=== PATIENT | female | born 1945 | race Caucasian/White ===

== ENCOUNTER 2017-08-21 11:53 | Inpatient (IN) | payer MEDICARE, BC ==
[2017-08-16 16:07] LABS: BASOPHILS % (AUTO) 0.4 % (0-1); EOSINOPHILS # (AUTO) 0.1 X10'3 (0-0.9); EOSINOPHILS % (AUTO) 1.3 % (0-6); LYMPHOCYTES # (AUTO) 1.5 X10'3 (1.1-4.8); LYMPHOCYTES % (AUTO) 25.3 % (21-51); MEAN CORPUSCULAR HEMOGLOBIN 32.4 PG (27.0-31.0); MEAN CORPUSCULAR HGB CONC 33.9 % (33.0-36.5); MEAN CORPUSCULAR VOLUME 95.6 FL (78-98); MEAN PLATELET VOLUME 8.5 FL (7.4-10.4); MONOCYTES # (AUTO) 0.6 X10'3 (0-0.9); MONOCYTES % (AUTO) 9.4 % (2-12); NEUTROPHILS # (AUTO) 3.8 X10'3 (1.8-7.7); NEUTROPHILS % (AUTO) 63.6 % (42-75); PRE OP HEMATOCRIT 44.1 % (35.0-45.0); PRE OP HEMOGLOBIN 14.9 g/dL (12.0-16.0); PRE OP PLATELET COUNT 229 X10'3 (140-440); RED BLOOD COUNT 4.61 X10'6 (4.20-5.60)
[2017-08-16 16:13] LABS: CLARITY,URINE Clear (Clear); COLOR,URINE Yellow (Yellow); GLUCOSE, URINE Negative (Neg); KETONES,URINE Negative (Neg); LEUKOCYTE ESTERASE ,URINE Moderate (Neg); NITRITES, URINE Negative (Neg); OCCULT BLOOD,URINE Negative (Neg); PROTEIN,URINE Negative (Neg); UROBILINOGEN,URINE 0.2 E.U/dL (0.2-1.0)
[2017-08-16 16:31] LABS: ALBUMIN 4.1 G/DL (3.4-5.0); ALKALINE PHOSPHATASE 53 IU/L (46-116); BLOOD UREA NITROGEN 11 MG/DL (7-18); BUN/CREATININE RATIO 15.7 (6.6-38.0); CALCIUM 9.2 MG/DL (8.5-10.1); CHLORIDE 102 MMOL/L (99-107); PRE OP ALT 51 U/L (30-65); PRE OP ANION GAP 9 (8-16); PRE OP AST 35 U/L (10-37); PRE OP BILIRUB, TOTAL 0.8 MG/DL (0.0-1.0); PRE OP GLUCOSE 104 MG/DL (70-104); PRE OP POTASSIUM 3.9 MMOL/L (3.4-5.1); PRE OP SODIUM 139 MMOL/L (135-145); TOTAL CARBON DIOXIDE 28.2 MMOL/L (24-32); TOTAL PROTEIN 8.1 G/DL (6.4-8.2); eGFR 82 ML/MIN
[2017-08-16 16:38] LABS: UA COLLECTION TYPE NON-SPECIFIED
[2017-08-16 16:47] LABS: WBC,URINE 20-30 /HPF (0-4)
[2017-08-16 16:48] LABS: BACTERIA,URINE 1+ /HPF (Neg); RBC,URINE NONE SEEN /HPF (0-2); SQUAMOUS EPITHELIAL CELL,UR FEW /LPF (FEW); WBC CLUMPS,URINE FEW /HPF (NEGATIVE)
[2017-08-21] VITALS (19 sets, daily range): BP systolic 82–125; BP diastolic 45–92
[~2017-08-21] VITALS: Ht 167.6 cm; Wt 83.0 kg
[~2017-08-21 11:53] MED LIST: CHOL200016 PO; ROSU5TAB PO; acetaminophen 325mg tablet PO ONE; ceFAZolin 2gm in dextrose, iso 100 ML IV ONE; famotidine 20mg tablet PO ONE; gabapentin 300mg capsule PO ONE; metoclopramide 5 mg/ml inj IV ONE; oxyCODONE SR 10mg (sust. release) tab PO ONE; ringers solution, lacted 1,000 ML IV SCH; tranexamic acid inj. 1,000 MG in normal saline 100ml IV soln 90 ML IV ONE; vancomycin inj 1,500 MG in normal saline 300ml IV soln IV ONE
[2017-08-21] MEDS ORDERED: LIDOcaine 1% (10mg/ml) 2ml vial ONE (12:30)
[2017-08-21] MEDS ORDERED: SULF1TAB49 PO (13:17)
[2017-08-21] MEDS ORDERED: ceFAZolin 1000mg inj ONE (13:33)
[2017-08-21] MEDS ORDERED: BUPIVAcaine/dex-water/PF 7.5 mg/ml 2ml ampul ONE (13:45)
[2017-08-21] MEDS ORDERED: MIDAZolam 1mg/ml 10ml vial ONE (13:48)
[2017-08-21] MEDS ORDERED: MORPHINE SULFATE/PF 0.5 MG/ML 10ML AMPUL ONE (13:49)
[2017-08-21] MEDS ORDERED: vancomycin 1,000mg inj ONE (13:51)
[2017-08-21] MEDS ORDERED: propofol inj 20 ML IV ONE ×2 (14:15)
[2017-08-21] MEDS ORDERED: naloxone 2mg/2ml inj 1.6 MG in normal saline 500ml IV soln 500 ML IV PRN (15:16)
[2017-08-21] MEDS ORDERED: ringers solution, lacted 1,000 ML IV SCH (15:16)
[2017-08-21] MEDS ORDERED: meperidine/PF 25mg/ml syringe IV ONE (15:20)
[2017-08-21] MEDS ORDERED: morphine 2 MG/ML inj. syringe IV PRN ×2 (15:20)
[2017-08-21] MEDS ORDERED: proCHLORperazine 10 MG/2 ml inj IV PRN (15:20)
[2017-08-21] MEDS ORDERED: diphenhydrAMINE 50 mg/ml inj IV PRN (15:20)
[2017-08-21] MEDS ORDERED: ondansetron/PF 4mg/2ml inj IV PRN ×2 (15:20)
[2017-08-21] MEDS ORDERED: meperidine/PF 25mg/ml syringe IV PRN ×2 (15:20)
[2017-08-21] MEDS ORDERED: oxyCODONE IR 5mg (immed. release) tablet PO PRN (15:50)
[2017-08-21] MEDS ORDERED: diphenhydrAMINE 25mg capsule PO PRN ×2 (15:50)
[2017-08-21] MEDS ORDERED: acetaminophen 325mg tablet PO PRN (15:50)
[2017-08-21] MEDS ORDERED: magnesium hydroxide 30ml (MOM) UD suspension PO PRN (15:50)
[2017-08-21] MEDS ORDERED: bisacodyl 10mg suppository rectal RC PRN (15:50)
[2017-08-21] MEDS ORDERED: cloNIDine hcl/PF 100mcg/ml inj ONE (16:05)
[2017-08-21] MEDS ORDERED: 0.9 % SODIUM CHLORIDE 10 ML VIAL ONE (16:11)
[2017-08-21] MEDS ORDERED: BUPIVAcaine/PF 2.5 mg/ml (0.25%) 30ml vial ONE (16:11)
[2017-08-21] MEDS ORDERED: dexamethasone sod phosphate 4mg/ml inj. ONE (16:11)
[2017-08-21] MEDS ORDERED: tranexamic acid inj. 800 MG in normal saline 100ml IV soln 100 ML IV ONE (18:00)
[2017-08-21] MEDS: potassium cl 20mEq in 1/2 NS 1,000 ML IV SCH ×2 (19:15→23:48)
[2017-08-21] MEDS: ondansetron/PF 4mg/2ml inj IV PRN ×2 (19:45→23:24)
[2017-08-21] MEDS ORDERED: vancomycin/NS 1 GM ADD-VANTAGE 250 ML IV SCH (20:00)
[2017-08-21] MEDS: cefazolin 1gm/NS 100mL 100 ML IV SCH (20:02)
[2017-08-21] MEDS: acetaminophen 325mg tablet PO SCH (20:03)
[2017-08-21] MEDS: gabapentin 300mg capsule PO SCH (20:03)
[2017-08-21] MEDS: sennosides 8.6mg tablet PO SCH (20:03)
[2017-08-21] MEDS: celeCOXIB 100mg capsule PO SCH (20:04)
[2017-08-22] VITALS (8 sets, daily range): BP systolic 98–124; BP diastolic 51–70
[2017-08-22] MEDS: cefazolin 1gm/NS 100mL 100 ML IV SCH
[2017-08-22] MEDS: acetaminophen 325mg tablet PO SCH ×4 (02:00→20:32)
[2017-08-22] MEDS ORDERED: cefazolin 1gm/NS 100mL 100 ML IV ONE (04:00)
[2017-08-22] MEDS: potassium cl 20mEq in 1/2 NS 1,000 ML IV SCH ×3 (06:12→23:47)
[2017-08-22 06:32] LABS: BASOPHILS % (AUTO) 0.1 % (0-1); EOSINOPHILS # (AUTO) 0.1 X10'3 (0-0.9); EOSINOPHILS % (AUTO) 0.8 % (0-6); HEMATOCRIT 34.7 % (35.0-45.0); HEMOGLOBIN 12.1 g/dl (12.0-16.0); LYMPHOCYTES # (AUTO) 0.6 X10'3 (1.1-4.8); LYMPHOCYTES % (AUTO) 6.6 % (21-51); MEAN CORPUSCULAR HEMOGLOBIN 32.9 PG (27.0-31.0); MEAN CORPUSCULAR HGB CONC 34.8 % (33.0-36.5); MEAN CORPUSCULAR VOLUME 94.6 FL (78-98); MEAN PLATELET VOLUME 8.8 FL (7.4-10.4); MONOCYTES # (AUTO) 0.6 X10'3 (0-0.9); MONOCYTES % (AUTO) 6.6 % (2-12); NEUTROPHILS # (AUTO) 7.2 X10'3 (1.8-7.7); NEUTROPHILS % (AUTO) 85.9 % (42-75); PLATELET COUNT 169 X10'3 (140-440); RED BLOOD COUNT 3.67 X10'6 (4.20-5.60); RED CELL DISTRIBUTION WIDTH 13.5 % (11.5-14.5); WHITE BLOOD COUNT 8.4 X10'3 (4.5-11.0)
[2017-08-22 06:46] LABS: ANION GAP 8 (8-16); CHLORIDE 105 MMOL/L (99-107); POTASSIUM 4.4 MMOL/L (3.5-5.1); SODIUM 136 MMOL/L (135-145); TOTAL CARBON DIOXIDE 22.6 MMOL/L (24-32)
[2017-08-22] MEDS: celeCOXIB 100mg capsule PO SCH ×2 (07:40→20:32)
[2017-08-22] MEDS: gabapentin 300mg capsule PO SCH ×3 (07:42→20:32)
[2017-08-22] MEDS: enoxaparin 40mg/0.4ml syringe SQ SCH (07:43)
[2017-08-22] MEDS: vitamin D (cholecalciferol) 1,000 unit tablet PO SCH (07:45)
[2017-08-22] MEDS: atorvastatin 20mg tablet PO SCH (07:50)
[2017-08-22] MEDS ORDERED: CHOLECALCIFEROL 6000 UNIT PO SCH (08:00)
[2017-08-22] MEDS ORDERED: ROSUVASTATIN CALCIUM 10 MG PO SCH (08:00)
[2017-08-22] MEDS: ROSUVASTATIN 10 MG PO SCH (11:59)
[2017-08-22] MEDS: Protein Shake (high protein) 240ml (8oz) cup PO SCH (17:30)
[2017-08-22] MEDS: sennosides 8.6mg tablet PO SCH ×2 (20:31→20:34)
[2017-08-22] MEDS: oxyCODONE IR 5mg (immed. release) tablet PO PRN (21:18)
[2017-08-23] MEDS: acetaminophen 325mg tablet PO SCH ×3 (01:47→13:47)
[2017-08-23] MEDS: oxyCODONE IR 5mg (immed. release) tablet PO PRN ×2 (05:37→10:31)
[2017-08-23 05:59] LABS: BASOPHILS % (AUTO) 0.2 % (0-1); EOSINOPHILS # (AUTO) 0.1 X10'3 (0-0.9); EOSINOPHILS % (AUTO) 1.4 % (0-6); HEMATOCRIT 32.7 % (35.0-45.0); HEMOGLOBIN 11.4 g/dl (12.0-16.0); LYMPHOCYTES % (AUTO) 14.4 % (21-51); MEAN CORPUSCULAR HEMOGLOBIN 33.2 PG (27.0-31.0); MEAN CORPUSCULAR HGB CONC 35.1 % (33.0-36.5); MEAN CORPUSCULAR VOLUME 94.5 FL (78-98); MEAN PLATELET VOLUME 8.7 FL (7.4-10.4); MONOCYTES # (AUTO) 0.7 X10'3 (0-0.9); MONOCYTES % (AUTO) 9.6 % (2-12); NEUTROPHILS # (AUTO) 5.3 X10'3 (1.8-7.7); NEUTROPHILS % (AUTO) 74.4 % (42-75); PLATELET COUNT 140 X10'3 (140-440); RED BLOOD COUNT 3.45 X10'6 (4.20-5.60); RED CELL DISTRIBUTION WIDTH 13.4 % (11.5-14.5); WHITE BLOOD COUNT 7.2 X10'3 (4.5-11.0)
[2017-08-23 06:00] VITALS: BP 117/71
[2017-08-23] MEDS: atorvastatin 20mg tablet PO SCH (07:59)
[2017-08-23] MEDS: sulfamethoxazole/trimethoprim DS (800/160mg) tablet PO SCH ×2 (08:08→19:37)
[2017-08-23] MEDS: celeCOXIB 100mg capsule PO SCH ×2 (08:08→19:37)
[2017-08-23] MEDS: gabapentin 300mg capsule PO SCH ×3 (08:08→19:37)
[2017-08-23] MEDS: ROSUVASTATIN 10 MG PO SCH (08:08)
[2017-08-23] MEDS: enoxaparin 40mg/0.4ml syringe SQ SCH (08:09)
[2017-08-23 10:00] VITALS: BP 118/66
[2017-08-23] MEDS: vitamin D (cholecalciferol) 1,000 unit tablet PO SCH (11:09)
[2017-08-23] MEDS: Protein Shake (high protein) 240ml (8oz) cup PO SCH ×2 (13:47→18:28)
[2017-08-23] MEDS ORDERED: acetaminophen 325mg tablet PO PRN (15:50)
[2017-08-23] MEDS: lactobacillus rhamnosus 10,000 MMU CELLS/CAPSULE PO SCH (17:40)
[2017-08-23 18:00] VITALS: BP 123/60
[2017-08-23] MEDS: sennosides 8.6mg tablet PO SCH (21:00)
[2017-08-23 22:00] VITALS: BP 131/76
[2017-08-24] MEDS: oxyCODONE IR 5mg (immed. release) tablet PO PRN ×3 (00:30→10:23)
[2017-08-24 06:00] VITALS: BP 118/64
[2017-08-24 06:41] LABS: BASOPHILS % (AUTO) 0.3 % (0-1); EOSINOPHILS # (AUTO) 0.1 X10'3 (0-0.9); EOSINOPHILS % (AUTO) 1.8 % (0-6); HEMATOCRIT 31.1 % (35.0-45.0); HEMOGLOBIN 10.8 g/dl (12.0-16.0); LYMPHOCYTES # (AUTO) 1.1 X10'3 (1.1-4.8); LYMPHOCYTES % (AUTO) 17.7 % (21-51); MEAN CORPUSCULAR HEMOGLOBIN 32.7 PG (27.0-31.0); MEAN CORPUSCULAR HGB CONC 34.7 % (33.0-36.5); MEAN CORPUSCULAR VOLUME 94.1 FL (78-98); MEAN PLATELET VOLUME 9.4 FL (7.4-10.4); MONOCYTES # (AUTO) 0.7 X10'3 (0-0.9); MONOCYTES % (AUTO) 12.3 % (2-12); NEUTROPHILS # (AUTO) 4.1 X10'3 (1.8-7.7); NEUTROPHILS % (AUTO) 67.9 % (42-75); PLATELET COUNT 134 X10'3 (140-440); RED BLOOD COUNT 3.31 X10'6 (4.20-5.60); RED CELL DISTRIBUTION WIDTH 13.9 % (11.5-14.5)
[2017-08-24] MEDS: atorvastatin 20mg tablet PO SCH (08:00)
[2017-08-24] MEDS: vitamin D (cholecalciferol) 1,000 unit tablet PO SCH (08:48)
[2017-08-24] MEDS: lactobacillus rhamnosus 10,000 MMU CELLS/CAPSULE PO SCH (08:48)
[2017-08-24] MEDS: celeCOXIB 100mg capsule PO SCH (08:48)
[2017-08-24] MEDS: gabapentin 300mg capsule PO SCH (08:48)
[2017-08-24] MEDS: ROSUVASTATIN 10 MG PO SCH (08:48)
[2017-08-24] MEDS: sulfamethoxazole/trimethoprim DS (800/160mg) tablet PO SCH (08:49)
[2017-08-24] MEDS: enoxaparin 40mg/0.4ml syringe SQ SCH (08:49)
[2017-08-24 10:00] VITALS: BP 117/77
== END 2017-08-24 11:40 | disposition home or self-care (01) | DRG 470 ==
LOC: PAS IN 11:53 → EDSTATUS 14:45 → ORTHO 4S 17:45
PROVIDERS: ADMIT Orthopaedic Surgery; ATTEND Orthopaedic Surgery
PROC: 0SRB04Z Replacement of Left Hip Joint with Ceramic on Polyethylene Synthetic Substitute, Open Approach (ICD-10-PCS; principal; 2017-08-21 13:45)
DX: M16.12 Unilateral primary osteoarthritis, left hip (principal); Z96.641 Presence of right artificial hip joint; D62 Acute posthemorrhagic anemia; E78.5 Hyperlipidemia, unspecified; Z79.899 Other long term (current) drug therapy
CPT/HCPCS: 36415; 72170; 80051; 80053; 81001; 85025; 86885; 86900; 86901; 87070; 87077; 87088; 87186; 93005; 97110; 97116; 97161; 97530; A4344; A6449; A7000; C1758; C1776; C9250; J0690; J0735; J1100; J1650; J2250; J2274; J2405; J2704; J2765; J3370; J3490; J7030; J7120